=== PATIENT | female | born 1985 | race Caucasian/White ===

== ENCOUNTER 2017-01-21 18:26 | Emergency (ER) | payer OTHER ==
[2017-01-21] MEDS ORDERED: Ketorolac Tromethamine 30 MG/ML VIAL ONE (19:14)
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
== END 2017-01-21 19:32 | disposition home or self-care (01) ==
LOC: BURERS 18:26
DX: S30.1XXA Contusion of abdominal wall, initial encounter (principal); V43.62XA Car passenger injured in collision with other type car in traffic accident, initial encounter
CPT/HCPCS: 74177; 96374; J1885